=== PATIENT | male | born 2000 | race Caucasian/White ===

== ENCOUNTER 2020-09-20 18:24 | Emergency (ER) | payer OTHER, MEDICAID ==
[2020-09-20] MEDS ORDERED: AMOX/CLAV 875 MG/125 MG TABLET PO STA (18:50)
--- NOTE | 2020-09-20 18:51 | ED Physician Documentation ---
History of Present Illness - Stated complaint Stated Complaint: RIGHT SIDE FACIAL PX - Chief complaint Chief Complaint: Heent - History obtained from History obtained from: Patient (20-year-old gentleman has had right-sided facial pain from a dental source today. He notes swelling although this is not visible at this time. No fevers. Declines pain medication. 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 - Past Surgical History Past Surgical History: Yes - Present Medications Home Medications: Ambulatory Orders Medication Instructions Recorded Confirmed Amox/Clav 875/125 [Augmentin] 1 each PO Q12H #20 tablet 09/20/20 - Allergies Allergies/Adverse Reactions: Allergies Allergy/AdvReac Type Severity Reaction Status Date / Time No Known Drug Allergies Allergy Verified 09/20/20 18:31 - Social History Does the pt smoke?: No Smoking Status: Never smoker Does the pt drink ETOH?: No Does the pt have substance abuse?: No - Immunizations Immunizations are current?: Yes PD ED PE NORMAL - Vitals Vital signs reviewed: Yes - General General: Alert and oriented X 3, No acute distress - HEENT HEENT: Other (Generally pretty good dentition, he does have 1 cavity from a right mandibular premolar, but he points to the right maxillary premolar is the site of pain which is mildly tender. I do not see a cavity in that tooth, that said it has a Filling or sealants on it) - Neck Neck: Supple, no meningeal sign, No bony TTP - Neuro Neuro: Alert and oriented X 3, Normal speech Results - Vitals Vitals: Vital Signs - 24 hr 09/20/20 09/20/20 09/20/20 18:31 18:44 18:56 Heart Rate 69 79 78 Respiratory 16 18 16 Rate Blood Pressure 155/100 H 159/91 H 150/90 H O2 Saturation 100 99 99 Oxygen O2 Source Room air Departure - Departure Disposition: 01 Home, Self Care Clinical Impression: Pain due to dental caries Condition: Good Record reviewed to determine appropriate education?: Yes Instructions: ED Tooth Pain Prescriptions: Amox/Clav 875/125 [Augmentin] 1 each PO Q12H #20 tablet Comments: Follow-up with a dentist tomorrow scheduled. Return for new or worsening symptoms. Tylenol and/or ibuprofen as needed for pain. Discharge Date/Time: 09/20/20 18:56
[2020-09-20 18:57] VITALS: BP 150/90
== END 2020-09-20 18:56 | disposition home or self-care (01) ==
LOC: ED 18:24
DX: K02.9 Dental caries, unspecified (principal)
CPT/HCPCS: 99282; 99283; A9270